=== PATIENT | male | born 1995 | race Caucasian/White ===

== ENCOUNTER → 2019-08-28 12:11 | Outpatient (CLI) | payer OTHER, SELFPAY ==
[2013-04-29 10:18] VITALS: BMI 22.9
--- NOTE | 2019-08-28 | LES_PTH ---
PATIENT: MARTINEZ PERRY LOC: [facility] U#:[id number] AGE/SX: 29/M ROOM: RE08/28/[address]: Dr. Mitch Zhao DDS : 1995 BED: DIS: SPEC #: [id number] RECD: 08/28/19 12:11 STATUS: FRANKIE CY #: [id number] CATHERINE: 08/28/19 00:[address]: Mitch Zhao DEPT: SURGICAL PATHOLOGY RECD BY: Kelvin Callejas ENTERED: 08/28/19 13:38 SP TYPE: Lesion OTHR DR: Dr. Devon Guzman MD Tissues: Skin of lip, NOS Procedures: Surgery Specimen Level IV HEADER OPERATION: Lower lip biopsy PRE-OP DIAGNOSIS: Lip (mucocele) TISSUE SUBMITTED: Lip (mucocele) MICROSCOPIC DIAGNOSIS Lip (mucocele), biopsy: Consistent with ruptured mucocele with associated inflammation and reactive changes. ELIAN:renu 08/29/19 MICROSCOPIC DESCRIPTION Slides are reviewed. GROSS DESCRIPTION Received in fixative is one container labeled with the patient's name and designated lip. The specimen consists of one irregular fragment of hunt-pink soft tissue that measures 0.5 x 0.5 x 0.2 cm. The specimen is totally submitted in one cassette. / SJ:rg 08/28/19 TC:5 CPT: 52095
== END ==
PROVIDERS: PCP Pediatrics; Referring Provider Dentist Oral and Maxillofacial Surgery; Visit Provider Dentist Oral and Maxillofacial Surgery
DX: K13.79 Other lesions of oral mucosa (principal)
CPT/HCPCS: 88305